=== PATIENT | male | born 1950 | race Caucasian/White ===

== ENCOUNTER 2019-11-18 20:45 | Inpatient (IN) | payer MEDICARE ==
[2019-11-18] MEDS ORDERED: NORMAL SALINE IV ONE (20:50)
[2019-11-18 21:32] LABS: VENOUS BLOOD BASE EXCESS -0.4 mmol/L; VENOUS BLOOD HCO3 22.9 mmol/L (20-32); VENOUS BLOOD PCO2 34.2 mmHg (35-63); VENOUS BLOOD PH 7.44 (7.30-7.42)
[2019-11-18 21:35] LABS: APPEARANCE,URINE CLOUDY; BILIRUBIN,URINE NEGATIVE (NEGATIVE); COLOR,URINE YELLOW; GLUCOSE, URINE >=500 mg/dL (NEGATIVE); KETONES,URINE TRACE mg/dL (NEGATIVE); LEUKOCYTE ESTERASE,URINE SMALL (NEGATIVE); NITRITE,URINE NEGATIVE (NEGATIVE); PROTEIN,URINE >=500 mg/dL (NEGATIVE); URINE SPECIFIC GRAVITY 1.022; UROBILINOGEN,URINE NEGATIVE mg/dL (<2.0)
[2019-11-18 21:39] LABS: ABSOLUTE LYMPHOCYTES (AUTO) 0.8 10^3/uL (0.5-4.7); ABSOLUTE MONOCYTES (AUTO) 0.3 10^3/uL (0.1-1.4); ABSOLUTE NEUT (AUTO) 7.1 10^3/uL (1.7-8.2); BASOPHILS % (AUTO) 0.6 % (0-2); EOSINOPHILS % (AUTO) 0.1 % (0-6); HEMATOCRIT 46.4 % (37.9-51.0); HEMOGLOBIN 16.1 g/dL (13.5-17.0); INTERNATIONAL RATION (INR) 1.19; LYMPHOCYTES % (AUTO) 9.6 % (13-45); MEAN CORPUSCULAR HEMOGLOBIN 29.4 pg (27.0-33.4); MEAN CORPUSCULAR HGB CONC 34.7 g/dL (32.0-36.0); MEAN CORPUSCULAR VOLUME 85 fl (80-97); MONOCYTES % (AUTO) 3.5 % (3-13); PLATELET COUNT 123 10^3/uL (150-450); PROTHROMBIN TIME 15.3 SEC (11.4-15.4); RED BLOOD COUNT 5.49 10^6/uL (4.35-5.55); RED CELL DISTRIBUTION WIDTH 14.8 % (11.5-14.0); SEGMENTED NEUTROPHILS % (AUTO) 86.2 % (42-78); TOTAL CELLS COUNTED % (AUTO) 100 %; WHITE BLOOD COUNT 8.2 10^3/uL (4.0-10.5)
[2019-11-18 21:47] LABS: ALBUMIN 4.6 g/dL (3.5-5.0); ALKALINE PHOSPHATASE 130 U/L (38-126); ANION GAP 17 (5-19); ASPARTATE AMINO TRANSFERASE 30 U/L (17-59); BILIRUBIN,DIRECT 0.5 mg/dL (0.0-0.4); BILIRUBIN,TOTAL 2.5 mg/dL (0.2-1.3); BLOOD UREA NITROGEN 17 mg/dL (7-20); CALCIUM 9.5 mg/dL (8.4-10.2); CARBON DIOXIDE 23 mmol/L (22-30); CHLORIDE 99 mmol/L (98-107); GLUCOSE 278 mg/dL (75-110); POTASSIUM 3.7 mmol/L (3.6-5.0); TOTAL PROTEIN 7.9 g/dL (6.3-8.2)
[2019-11-18] MEDS ORDERED: CEFTRIAXONE 1 GM/D5W RTU 1 GM/50 ML RTUPB IV ONE (23:42)
--- NOTE | 2019-11-18 23:49 | EKG REPORT ---
SEVERITY:- BORDERLINE ECG - SINUS TACHYCARDIA LVH BY VOLTAGE BORDERLINE T ABNORMALITIES, INFERIOR LEADS : Confirmed by: Jim Bee MD 18-Nov-2019 23:48:29
--- NOTE | 2019-11-18 23:55 | ER Document Report ---
ED General - General Chief Complaint: Dizziness Stated Complaint: TROUBLE BREATHING/VOMITING Time Seen by Provider: 11/18/19 23:41 Notes: CHIEF COMPLAINT: Dysuria and fever HPI: 68-year-old male brought by EMS for evaluation of dysuria fever and shortness of breath. Patient states that he has a history of hypertension, urinary infections, kidney stones, prediabetes and reflux disease. Patient takes carvedilol, losartan, metformin. Patient states that he began not feeling well yesterday with extreme fatigue and discomfort with urination. Patient denies abdominal pain or vomiting but states he did have nausea. Patient states that he was on the toilet tonight and became lightheaded and short of breath. called EMS at that time and he was found to have a fever of 102.5. Patient currently denies shortness of breath. ROS: See HPI - all other systems were reviewed and are otherwise negative Constitutional: no fever Eyes: no drainage, no blurred vision ENT: no runny nose, no sore throat Cardiovascular: no chest pain Resp: + SOB, no cough GI: no vomiting, no diarrhea, no abdominal pain : + dysuria Integumentary: no rash Allergy: no hives Musculoskeletal: no extremity pain or swelling Neurological: no numbness/tingling, + generalized weakness MEDICATIONS: I agree with the patient medications as charted by the RN. ALLERGIES: I agree with the allergies as charted by the RN. PAST MEDICAL HISTORY/PAST SURGICAL HISTORY: Reviewed and agree as charted by RN. SOCIAL HISTORY: Reviewed and agree as charted by RN. FAMILY HISTORY: No significant familial comorbid conditions directly related to patient complaint EXAM: Reviewed vital signs as charted by RN. CONSTITUTIONAL: Alert and oriented and responds appropriately to questions. Slightly ill-appearing; well-nourished HEAD: Normocephalic; atraumatic EYES: PERRL; Conjunctivae clear, sclerae non-icteric ENT: normal nose; no rhinorrhea; moist mucous membranes; pharynx without lesions noted, no uvula edema or deviation, no tonsillar hypertrophy, phonation normal NECK: Supple without meningismus; non-tender; no cervical lymphadenopathy, no masses CARD: Tachycardic; no murmurs, no clicks, no rubs, no gallops; symmetric distal pulses RESP: Normal chest excursion without splinting or tachypnea; breath sounds clear and equal bilaterally; no wheezes, no rhonchi, no rales, pulse oximetry 95% on room air not hypoxic ABD/GI: Obese, normal bowel sounds; non-distended; soft, mild suprapubic tenderness on palpation, no rebound, no guarding; no palpable organomegaly or masses. BACK: The back appears normal and is non-tender to palpation, there is no CVA tenderness EXT: Normal ROM in all joints; non-tender to palpation; no cyanosis, no effusions, no edema SKIN: Normal color for age and race; warm; diaphoretic; good turgor; no acute lesions noted NEURO: Moves all extremities equally; Motor and sensory function intact PSYCH: The patient's mood and manner are appropriate. Grooming and personal hygiene are appropriate. MDM: 68-year-old male presenting with dysuria with fever today up to 102.5 at home. Patient had acute shortness of breath with onset of the fever, not short of breath currently. Initial screening labs show a lactic acid of 3.0. Patient also with greater than 182 WBCs on urinalysis. Suspect urosepsis. Sepsis order set ordered via protocol, have added Rocephin as an antibiotic for the patient. Have added urine culture. Will obtain chest x-ray given the shortness of breath although I believe this was likely due to the high fever. Patient will likely need admission - Related Data Allergies/Adverse Reactions: acetaminophen [From Tylenol] Allergy (Verified 11/18/19 22:42) codeine Allergy (Verified 11/18/19 22:43) Past Medical History - Social History Smoking Status: Never Smoker Family History: Reviewed & Not Pertinent Physical Exam - Vital signs Vitals: Resp Pulse Ox 23 H 95 11/18/19 20:49 11/18/19 20:49 Course - Re-evaluation Re-evalutation: 11/19/19 00:[address] Prado, Hospitalist. Case discussed. Will come down to evaluate the patient - Vital Signs Vital signs: Temp Pulse Resp BP Pulse Ox 98.9 F 23 H 124/70 95 11/18/19 22:35 11/18/19 23:01 11/18/19 23:01 11/18/19 23:01 - Laboratory Result Diagrams: 11/18/19 20:58 11/18/19 20:58 Laboratory results interpreted by me: 11/18/19 11/18/19 11/18/19 20:58 20:58 20:58 RDW 14.8 H Plt Count 123 L Lymph % (Auto) 9.6 L Seg Neutrophils % 86.2 H VBG pH 7.44 H VBG pCO2 34.2 L Creatinine 1.43 H Est GFR ( Amer) 59 L Est GFR (MDRD) Non-Af 49 L Glucose 278 H Lactic Acid Total Bilirubin 2.5 H Direct Bilirubin 0.5 H Alkaline Phosphatase 130 H Urine Protein Urine Glucose (UA) Urine Ketones Urine Blood Ur Leukocyte Esterase 11/18/19 11/18/19 20:58 21:18 RDW Plt Count Lymph % (Auto) Seg Neutrophils % VBG pH VBG pCO2 Creatinine Est GFR ( Amer) Est GFR (MDRD) Non-Af Glucose Lactic Acid 3.0 H Total Bilirubin Direct Bilirubin Alkaline Phosphatase Urine Protein >=500 H Urine Glucose (UA) >=500 H Urine Ketones TRACE H Urine Blood MODERATE H Ur Leukocyte Esterase SMALL H Critical Care Note - Critical Care Note Total time excluding time spent on procedures (mins): 35 - urosepsis Discharge - Discharge Clinical Impression: Sepsis Qualifiers: Sepsis type: sepsis due to unspecified organism Sepsis acute organ dysfunction status: unspecified Qualified Code(s): A41.9 - Sepsis, unspecified organism UTI (urinary tract infection) Qualifiers: Urinary tract infection type: site unspecified Hematuria presence: without hematuria Qualified Code(s): N39.0 - Urinary tract infection, site not specified Condition: Fair Disposition: ADMITTED INPATIENT Admitting Provider: Eve (Hospitalist)
--- NOTE | 2019-11-19 00:52 | RADIOLOGY REPORT (SQ) ---
EXAM DESCRIPTION: X-RAY CHEST- One View CLINICAL HISTORY: Sepsis COMPARISON: None TECHNIQUE: Single view of the chest. FINDINGS: There are overlying EKG leads. Low lung volumes with compressive changes. There are no discrete air space infiltrates, pneumothoraces or pleural effusions. The pulmonary vascularity is normal. The cardiomediastinal silhouette is normal in size. There are arthritic changes of the right shoulder. IMPRESSION: There are no acute lung parenchymal findings. There are low lung volumes with compressive changes.
[2019-11-19] MEDS ORDERED: IBUPROFEN 600 MG TABLET PO PRN (00:58)
[2019-11-19] MEDS ORDERED: ONDANSETRON HCL INJ/PF 4 MG/2 ML SDV IV PRN (00:58)
--- NOTE | 2019-11-19 01:18 | PDOC H&P ---
History of Present Illness History of Present Illness: JAYNA WESLEY is a 68 year old male of a rather anxious disposition history of kidney stones and morbid obesity who presents with symptoms of a urinary tract infection since Tuesday. He did not call his doctor and did not noted that there was an after hours human resources receptionist number. He said he initially thought it was just small kidney stones that were clearing because he has had this before. He first noticed the dysuria on Tuesday afternoon. On Tuesday he had some nonspecific malaise and does not know if he had a fever because he says he does not typically feel febrile until his temperature hits 103 F. His called EMS and apparently his temperature was greater than 102 Fahrenheit. He was tachycardic in the ER. He says that he is allergic to a whole bunch of medicines but the only thing they do is make him nauseated, he is never had medication reaction where he broke out in hives or rash or had trouble breathing. His urinalysis was positive. He was given some IV fluids and a dose of Rocephin in the ER. Social History Smoking Status: Never Smoker Family History Family History: Reviewed & Not Pertinent Parental Family History Reviewed: Yes Children Family History Reviewed: Yes Sibling(s) Family History Reviewed.: Yes Medication/Allergy Allergies/Adverse Reactions: acetaminophen [From Tylenol] Allergy (Verified 11/18/19 22:42) codeine Allergy (Verified 11/18/19 22:43) Review of Systems All systems: reviewed and no additional remarkable complaints except as stated - All systems were reviewed and were negative except as noted in the HPI Physical Exam Vital Signs: Temp Pulse Resp BP Pulse Ox 98.9 F 23 H 124/70 95 11/18/19 22:35 11/18/19 23:01 11/18/19 23:01 11/18/19 23:01 Intake & Output 11/17/19 11/18/19 11/19/19 06:59 06:59 06:59 Weight 125.191 kg General appearance: PRESENT: no acute distress, cooperative, disheveled, morbidly obese Head exam: PRESENT: atraumatic, normocephalic Eye exam: PRESENT: EOMI, PERRLA. ABSENT: conjunctival injection, nystagmus, scleral icterus Ear exam: PRESENT: normal external ear exam Mouth exam: PRESENT: neck supple Neck exam: PRESENT: full ROM. ABSENT: carotid bruit, JVD, lymphadenopathy, meningismus, tenderness, thyromegaly Respiratory exam: PRESENT: clear to auscultation cesar, symmetrical, unlabored. ABSENT: accessory muscle use, chest wall tenderness, crackles, prolonged expiratory phas, rhonchi, tachypnea, wheezes Cardiovascular exam: PRESENT: +S1, +S2, tachycardia Pulses: PRESENT: normal carotid pulses Vascular exam: PRESENT: normal capillary refill GI/Abdominal exam: PRESENT: normal bowel sounds, soft, other - Pendulous abdominal pannus. ABSENT: distended, guarding, rebound, tenderness Extremities exam: PRESENT: other - He has varicose veins all the way up his legs bilaterally. ABSENT: clubbing, pedal edema Musculoskeletal exam: PRESENT: normal inspection. ABSENT: deformity Neurological exam: PRESENT: alert, awake, oriented to person, oriented to place, oriented to situation, CN II-XII grossly intact. ABSENT: motor sensory deficit Psychiatric exam: PRESENT: anxious Skin exam: PRESENT: dry, warm Results Laboratory Results: 11/18/19 20:58 11/18/19 20:58 11/18/19 11/18/19 11/18/19 20:58 20:58 20:58 WBC 8.2 RBC 5.49 Hgb 16.1 Hct 46.4 MCV 85 MCH 29.4 MCHC 34.7 RDW 14.8 H Plt Count 123 L Seg Neutrophils % 86.2 H VBG pH 7.44 H VBG pCO2 34.2 L VBG HCO3 22.9 VBG Base Excess -0.4 Sodium 138.6 Potassium 3.7 Chloride 99 Carbon Dioxide 23 Anion Gap 17 BUN 17 Creatinine 1.43 H Est GFR ( Amer) 59 L Glucose 278 H Lactic Acid Calcium 9.5 Total Bilirubin 2.5 H AST 30 Alkaline Phosphatase 130 H Total Protein 7.9 Albumin 4.6 Urine Color Urine Appearance Urine pH Ur Specific [place] Urine Protein Urine Glucose (UA) Urine Ketones Urine Blood Urine Nitrite Ur Leukocyte Esterase Urine WBC (Auto) Urine RBC (Auto) 11/18/19 11/18/19 20:58 21:18 WBC RBC Hgb Hct MCV MCH MCHC RDW Plt Count Seg Neutrophils % VBG pH VBG pCO2 VBG HCO3 VBG Base Excess Sodium Potassium Chloride Carbon Dioxide Anion Gap BUN Creatinine Est GFR ( Amer) Glucose Lactic Acid 3.0 H Calcium Total Bilirubin AST Alkaline Phosphatase Total Protein Albumin Urine Color YELLOW Urine Appearance CLOUDY Urine pH 5.0 Ur Specific [place] 1.022 Urine Protein >=500 H Urine Glucose (UA) >=500 H Urine Ketones TRACE H Urine Blood MODERATE H Urine Nitrite NEGATIVE Ur Leukocyte Esterase SMALL H Urine WBC (Auto) >182 Urine RBC (Auto) 9 Impressions: Chest X-Ray 11/18/19 23:55 IMPRESSION: There are no acute lung parenchymal findings. There are low lung volumes with compressive changes. Assessment and Plan - Diagnosis (1) Sepsis Qualifiers: Sepsis type: sepsis due to unspecified organism Sepsis acute organ dysfunction status: with acute organ dysfunction Severe sepsis acute organ dysfunction type: unspecified Severe sepsis shock status: without septic shock Qualified Code(s): A41.9 - Sepsis, unspecified organism; R65.20 - Severe sepsis without septic shock Is this a current diagnosis for this admission?: Yes Plan: His lactate was elevated, but also interestingly his bilirubin was little bit elevated. I do not know that this is normal for him. His liver enzymes were normal and his alkaline phosphatase was at the upper limit of normal. It may be that he typically runs a little bit of an elevated bilirubin, but we have no p rior lab work on him with which to compare it. We will hydrate him and treat his urinary infection and monitor his labs. His creatinine was elevated but his BUN was normal, and there is a possibility that his kidney function is at baseline. We will follow-up on another metabolic panel in the morning. (2) UTI (urinary tract infection) Qualifiers: Urinary tract infection type: acute cystitis Hematuria presence: without hematuria Qualified Code(s): N30.00 - Acute cystitis without hematuria Is this a current diagnosis for this admission?: Yes Plan: Empiric Rocephin. Urine and blood cultures pending. (3) Morbid obesity with BMI of 40.0-44.9, adult Is this a current diagnosis for this admission?: Yes Plan: Strongly encourage lifestyle modification - Time Time Spent with patient: 35 or more minutes Anticipated Discharge Disposition: Home, Self Care Anticipated Discharge Timeframe: within 48 hours - Inpatient Certification Based on my medical assessment, after consideration of the patient's comorbidities, presenting symptoms, or acuity I expect that the services needed warrant INPATIENT care.: Yes I certify that my determination is in accordance with my understanding of Medicare's requirements for reasonable and necessary INPATIENT services [42 CFR 412.3e].: Yes Medical Necessity: Need Close Monitoring Due to Risk of Patient Decompensation, Need For IV Fluids, Need for IV Antibiotics, Risk of Complication if Not Cared For in Hospital
[2019-11-19] MEDS: NORMAL SALINE 1000 ML 1,000 ML IV PRN ×3 (03:44→22:13)
[2019-11-19] MEDS: HEPARIN SOD (PORCINE) 5,000 UNIT/ML 1 ML VIAL SUBCUT SCH ×3 (05:19→22:15)
[2019-11-19] MEDS ORDERED: PANTOPRAZOLE SODIUM 40 MG TABLET.DR PO SCH (06:00)
[2019-11-19] MEDS: TRAMADOL HCL 50 MG TABLET PO PRN ×2 (06:55→20:30)
[2019-11-19] MEDS: CARVEDILOL 12.5 MG TABLET PO SCH ×2 (09:54→22:05)
[2019-11-19] MEDS: TAMSULOSIN HCL 0.4 MG CAP.SR.24H PO SCH (09:54)
[2019-11-19] MEDS: METFORMIN HCL 500 MG TABLET PO SCH (09:54)
[2019-11-19] MEDS: CHLORTHALIDONE 25 MG TABLET PO SCH (09:55)
[2019-11-19] MEDS ORDERED: LOSARTAN POTASSIUM 50 MG TABLET PO SCH (10:00)
[2019-11-19] MEDS ORDERED: (PENDING PHARMACY ID) (Irbesartan [Irbesartan] 300 MG) PO SCH (10:00)
[2019-11-19] MEDS ORDERED: DEXLANSOPRAZOLE PO SCH (10:00)
[2019-11-19] MEDS: CEFTRIAXONE 1 GM/D5W RTU 1 GM/50 ML RTUPB IV SCH (22:07)
[2019-11-20 04:58] LABS: MEAN CORPUSCULAR HEMOGLOBIN 28.9 pg (27.0-33.4); MEAN CORPUSCULAR HGB CONC 34.3 g/dL (32.0-36.0); MEAN CORPUSCULAR VOLUME 84 fl (80-97); RED BLOOD COUNT 4.39 10^6/uL (4.35-5.55); WHITE BLOOD COUNT 13.6 10^3/uL (4.0-10.5)
[2019-11-20 05:02] LABS: ALKALINE PHOSPHATASE 87 U/L (38-126); ANION GAP 11 (5-19); ASPARTATE AMINO TRANSFERASE 59 U/L (17-59); BILIRUBIN,TOTAL 0.6 mg/dL (0.2-1.3); BLOOD UREA NITROGEN 22 mg/dL (7-20); CALCIUM 7.7 mg/dL (8.4-10.2); CARBON DIOXIDE 20 mmol/L (22-30); CHLORIDE 104 mmol/L (98-107); GLUCOSE 246 mg/dL (75-110); POTASSIUM 3.6 mmol/L (3.6-5.0); TOTAL PROTEIN 5.8 g/dL (6.3-8.2)
[2019-11-20 05:13] LABS: HEMOGLOBIN 12.7 g/dL (13.5-17.0)
[2019-11-20] MEDS: HEPARIN SOD (PORCINE) 5,000 UNIT/ML 1 ML VIAL SUBCUT SCH ×3 (05:16→22:50)
[2019-11-20 05:17] LABS: PLATELET COUNT 90 10^3/uL (150-450)
[2019-11-20] MEDS: CARVEDILOL 12.5 MG TABLET PO SCH ×2 (09:10→22:48)
[2019-11-20] MEDS: METFORMIN HCL 500 MG TABLET PO SCH (09:10)
[2019-11-20] MEDS: IRBESARTAN PO SCH (09:11)
[2019-11-20] MEDS: NORMAL SALINE 1000 ML 1,000 ML IV PRN ×2 (09:22→19:27)
[2019-11-20] MEDS ORDERED: DEXLANSOPRAZOLE PO SCH (10:00)
--- NOTE | 2019-11-20 13:54 | PDOC PROGRESS REPORT ---
Subjective Progress Note for:: 11/20/19 Reason For Visit: UTI Physical Exam Vital Signs: Temp Pulse Resp BP Pulse Ox 98.1 F 79 20 155/84 H 97 11/20/19 11:41 11/20/19 11:41 11/20/19 11:41 11/20/19 11:41 11/20/19 11:41 Intake & Output 11/19/19 11/20/19 11/21/19 06:59 06:59 06:59 Intake Total 4200 3829 1727 Balance 4200 3829 1727 Weight 127.1 kg 127 kg General appearance: PRESENT: no acute distress, obese, well-developed, well- nourished Head exam: PRESENT: atraumatic, normocephalic Eye exam: PRESENT: conjunctiva pink, EOMI, PERRLA. ABSENT: scleral icterus Ear exam: PRESENT: normal external ear exam Mouth exam: PRESENT: moist, tongue midline Neck exam: ABSENT: carotid bruit, JVD, lymphadenopathy, thyromegaly Respiratory exam: PRESENT: clear to auscultation cesar. ABSENT: rales, rhonchi, wheezes Cardiovascular exam: PRESENT: RRR. ABSENT: diastolic murmur, rubs, systolic murmur Pulses: PRESENT: normal dorsalis pedis pul Vascular exam: PRESENT: normal capillary refill GI/Abdominal exam: PRESENT: normal bowel sounds, soft. ABSENT: distended, guarding, mass, organolmegaly, rebound, tenderness Rectal exam: PRESENT: deferred Extremities exam: PRESENT: full ROM. ABSENT: calf tenderness, clubbing, pedal edema Neurological exam: PRESENT: alert, awake, oriented to person, oriented to place, oriented to time, oriented to situation, CN II-XII grossly intact. ABSENT: motor sensory deficit Psychiatric exam: PRESENT: appropriate affect, normal mood. ABSENT: homicidal ideation, suicidal ideation Skin exam: PRESENT: dry, intact, warm. ABSENT: cyanosis, rash Results Laboratory Results: 11/20/19 04:40 11/20/19 04:40 11/20/19 11/20/19 04:40 04:40 WBC 13.6 H RBC 4.39 Hgb 12.7 L D Hct 37.0 L MCV 84 MCH 28.9 MCHC 34.3 RDW 15.0 H Plt Count 90 L Sodium 135.1 L Potassium 3.6 Chloride 104 Carbon Dioxide 20 L Anion Gap 11 BUN 22 H Creatinine 1.32 H Est GFR ( Amer) > 60 Glucose 246 H Calcium 7.7 L Total Bilirubin 0.6 AST 59 Alkaline Phosphatase 87 Total Protein 5.8 L Albumin 3.0 L Impressions: Chest X-Ray 11/18/19 23:55 IMPRESSION: There are no acute lung parenchymal findings. There are low lung volumes with compressive changes. Assessment and Plan - Diagnosis (1) Morbid obesity with BMI of 40.0-44.9, adult Is this a current diagnosis for this admission?: Yes (2) Sepsis Qualifiers: Sepsis type: sepsis due to unspecified organism Sepsis acute organ dys function status: with acute organ dysfunction Severe sepsis acute organ d ysfunction type: unspecified Severe sepsis shock status: without septic shock Qualified Code(s): A41.9 - Sepsis, unspecified organism; R65.20 - Severe sepsis without septic shock Is this a current diagnosis for this admission?: Yes Plan: Secondary to gram negative organisms. Will repeat BC in am Cont Ceftriaxone (3) UTI (urinary tract infection) Qualifiers: Urinary tract infection type: acute cystitis Hematuria presence: without hematuria Qualified Code(s): N30.00 - Acute cystitis without hematuria Is this a current diagnosis for this admission?: Yes Plan: From gram negative rods, follow up on cultures - Time Time Spent with patient: 15-24 minutes Anticipated Discharge Disposition: Home, Self Care Anticipated Discharge Timeframe: within 48 hours
[2019-11-20] MEDS: TAMSULOSIN HCL 0.4 MG CAP.SR.24H PO SCH (17:48)
[2019-11-20] MEDS: CHLORTHALIDONE 25 MG TABLET PO SCH (17:51)
[2019-11-20] MEDS: DEXLANSOPRAZOLE PO SCH (19:25)
[2019-11-20] MEDS: CEFTRIAXONE 1 GM/D5W RTU 1 GM/50 ML RTUPB IV SCH (22:49)
[2019-11-21] MEDS: HEPARIN SOD (PORCINE) 5,000 UNIT/ML 1 ML VIAL SUBCUT SCH ×3 (06:16→21:45)
[2019-11-21 07:46] LABS: ABSOLUTE BASOPHILS # (AUTO) 0.1 10^3/uL (0.0-0.2); ABSOLUTE EOSINOPHILS # (AUTO) 0.3 10^3/uL (0.0-0.6); ABSOLUTE LYMPHOCYTES (AUTO) 0.7 10^3/uL (0.5-4.7); ABSOLUTE MONOCYTES (AUTO) 0.9 10^3/uL (0.1-1.4); ABSOLUTE NEUT (AUTO) 7.8 10^3/uL (1.7-8.2); BASOPHILS % (AUTO) 0.5 % (0-2); EOSINOPHILS % (AUTO) 2.6 % (0-6); HEMATOCRIT 37.6 % (37.9-51.0); LYMPHOCYTES % (AUTO) 7.1 % (13-45); MEAN CORPUSCULAR HEMOGLOBIN 29.1 pg (27.0-33.4); MEAN CORPUSCULAR HGB CONC 34.7 g/dL (32.0-36.0); MEAN CORPUSCULAR VOLUME 84 fl (80-97); MONOCYTES % (AUTO) 9.7 % (3-13); PLATELET COUNT 103 10^3/uL (150-450); RED BLOOD COUNT 4.48 10^6/uL (4.35-5.55); SEGMENTED NEUTROPHILS % (AUTO) 80.1 % (42-78); TOTAL CELLS COUNTED % (AUTO) 100 %; WHITE BLOOD COUNT 9.7 10^3/uL (4.0-10.5)
[2019-11-21 07:58] LABS: ANION GAP 12 (5-19); BLOOD UREA NITROGEN 20 mg/dL (7-20); CALCIUM 8.3 mg/dL (8.4-10.2); CARBON DIOXIDE 26 mmol/L (22-30); CHLORIDE 99 mmol/L (98-107); GLUCOSE 173 mg/dL (75-110); POTASSIUM 3.5 mmol/L (3.6-5.0)
[2019-11-21] MEDS: CHLORTHALIDONE 25 MG TABLET PO SCH (09:44)
[2019-11-21] MEDS: METFORMIN HCL 500 MG TABLET PO SCH (09:44)
[2019-11-21] MEDS: CARVEDILOL 12.5 MG TABLET PO SCH ×2 (09:44→21:35)
[2019-11-21] MEDS: IRBESARTAN PO SCH (09:45)
[2019-11-21] MEDS: NORMAL SALINE 1000 ML 1,000 ML IV PRN ×2 (09:46→21:44)
[2019-11-21] MEDS ORDERED: POTASSIUM CHLORIDE 10 MEQ TABLET.ER PO ONE (14:19)
[2019-11-21] MEDS: TAMSULOSIN HCL 0.4 MG CAP.SR.24H PO SCH (14:20)
--- NOTE | 2019-11-21 14:23 | PDOC PROGRESS REPORT ---
Subjective Progress Note for:: 11/21/19 Subjective:: Patient feels much better today. He states he still feels weak and his appetite is poor but he can definitely notice an improvement Reason For Visit: UTI Physical Exam Vital Signs: Temp Pulse Resp BP Pulse Ox 97.9 F 82 16 156/84 H 95 11/21/19 11:22 11/21/19 11:22 11/21/19 11:22 11/21/19 11:22 11/21/19 11:22 Intake & Output 11/20/19 11/21/19 11/22/19 06:59 06:59 06:59 Intake Total 3829 4857 240 Balance 3829 4857 240 Weight 127 kg 129.6 kg General appearance: PRESENT: no acute distress, well-developed, well-nourished Head exam: PRESENT: atraumatic, normocephalic Eye exam: PRESENT: conjunctiva pink, EOMI, PERRLA. ABSENT: scleral icterus Ear exam: PRESENT: normal external ear exam Mouth exam: PRESENT: moist, tongue midline Neck exam: ABSENT: carotid bruit, JVD, lymphadenopathy, thyromegaly Respiratory exam: PRESENT: clear to auscultation cesar. ABSENT: rales, rhonchi, wheezes Cardiovascular exam: PRESENT: RRR. ABSENT: diastolic murmur, rubs, systolic murmur Pulses: PRESENT: normal dorsalis pedis pul Vascular exam: PRESENT: normal capillary refill GI/Abdominal exam: PRESENT: normal bowel sounds, soft. ABSENT: distended, guarding, mass, organolmegaly, rebound, tenderness Rectal exam: PRESENT: deferred Extremities exam: PRESENT: full ROM. ABSENT: calf tenderness, clubbing, pedal edema Neurological exam: PRESENT: alert, awake, oriented to person, oriented to place, oriented to time, oriented to situation, CN II-XII grossly intact. ABSENT: motor sensory deficit Psychiatric exam: PRESENT: appropriate affect, normal mood. ABSENT: homicidal ideation, suicidal ideation Skin exam: PRESENT: dry, intact, warm. ABSENT: cyanosis, rash Results Laboratory Results: 11/21/19 06:17 11/21/19 06:17 11/21/19 11/21/19 06:17 06:17 WBC 9.7 RBC 4.48 Hgb 13.0 L Hct 37.6 L MCV 84 MCH 29.1 MCHC 34.7 RDW 15.0 H Plt Count 103 L Seg Neutrophils % 80.1 H Sodium 137.1 Potassium 3.5 L Chloride 99 Carbon Dioxide 26 Anion Gap 12 BUN 20 Creatinine 1.17 Est GFR ( Amer) > 60 Glucose 173 H Calcium 8.3 L 11/18/19 21:18 Clean Catch Midstream Urine Culture - Final Klebsiella Oxytoca 11/18/19 21:25 Blood Blood Culture - Final Klebsiella Oxytoca Impressions: Chest X-Ray 11/18/19 23:55 IMPRESSION: There are no acute lung parenchymal findings. There are low lung volumes with compressive changes. Assessment and Plan - Diagnosis (1) Morbid obesity with BMI of 40.0-44.9, adult Is this a current diagnosis for this admission?: Yes Plan: Strongly encourage lifestyle modification (2) Sepsis Qualifiers: Sepsis type: sepsis due to unspecified organism Sepsis acute organ dysfunction status: with acute organ dysfunction Severe sepsis acute organ dysfunction type: unspecified Severe sepsis shock status: without septic shock Qualified Code(s): A41.9 - Sepsis, unspecified organism; R65.20 - Severe sepsis without septic shock Is this a current diagnosis for this admission?: Yes Plan: Blood culture yielding Klebsiella. Repeat blood cultures pending today. Once this is negative patient can be changed to oral antibiotics and can likely be discharged home. Source of his bacteremia is the urine. He does have a history of nephrolithiasis (3) UTI (urinary tract infection) Qualifiers: Urinary tract infection type: acute cystitis Hematuria presence: without hematuria Qualified Code(s): N30.00 - Acute cystitis without hematuria Is this a current diagnosis for this admission?: Yes Plan: Secondary to Klebsiella. We will continue with parenteral antibiotics and change to oral once blood culture negative - Time Time Spent with patient: 15-24 minutes Anticipated Discharge Disposition: Home, Self Care Anticipated Discharge Timeframe: within 48 hours - Inpatient Certification Based on my medical assessment, after consideration of the patient's comorbidities, presenting symptoms, or acuity I expect that the services needed warrant INPATIENT care.: Yes Medical Necessity: Need for IV Antibiotics
[2019-11-21] MEDS: DEXLANSOPRAZOLE PO SCH (18:54)
[2019-11-21] MEDS: CEFTRIAXONE 1 GM/D5W RTU 1 GM/50 ML RTUPB IV SCH (21:34)
[2019-11-22] MEDS: HEPARIN SOD (PORCINE) 5,000 UNIT/ML 1 ML VIAL SUBCUT SCH ×3 (06:52→21:52)
[2019-11-22] MEDS: NORMAL SALINE 1000 ML 1,000 ML IV PRN ×2 (08:30→19:22)
[2019-11-22] MEDS: CHLORTHALIDONE 25 MG TABLET PO SCH (08:30)
[2019-11-22] MEDS: METFORMIN HCL 500 MG TABLET PO SCH (09:07)
[2019-11-22] MEDS: IRBESARTAN PO SCH (09:08)
[2019-11-22] MEDS: CARVEDILOL 12.5 MG TABLET PO SCH ×2 (09:08→21:55)
[2019-11-22] MEDS: TAMSULOSIN HCL 0.4 MG CAP.SR.24H PO SCH (12:01)
[2019-11-22] MEDS: DEXLANSOPRAZOLE PO SCH (17:25)
[2019-11-22] MEDS ORDERED: SENNOSIDES/DOCUSATE 8.6-50 MG 1 EACH TABLET PO ONE (18:00)
[2019-11-22] MEDS: CEFTRIAXONE 1 GM/D5W RTU 1 GM/50 ML RTUPB IV SCH (21:57)
--- NOTE | 2019-11-22 22:56 | PDOC PROGRESS REPORT ---
Subjective Progress Note for:: 11/22/19 Subjective:: Patient was seen and examined at bedside reports that he is feeling much better today compared to previous days still not back to his baseline. No fever no dysuria no hematuria no nausea and vomiting. Has fair appetite able to eat and drink. Reason For Visit: UTI Physical Exam Vital Signs: Temp Pulse Resp BP Pulse Ox 98.3 F 83 18 145/82 H 96 11/22/19 19:36 11/22/19 19:36 11/22/19 19:36 11/22/19 19:36 11/22/19 19:36 Intake & Output 11/21/19 11/22/19 11/23/19 06:59 06:59 06:59 Intake Total 4857 2070 3350 Balance 4857 2070 3350 Weight 129.6 kg 129.6 kg General appearance: PRESENT: no acute distress Head exam: PRESENT: atraumatic, normocephalic Eye exam: PRESENT: EOMI, PERRLA Mouth exam: PRESENT: moist Respiratory exam: PRESENT: clear to auscultation cesar, symmetrical. ABSENT: rales, rhonchi, wheezes Cardiovascular exam: PRESENT: RRR, +S1, +S2 - normal. ABSENT: gallop, systolic murmur Pulses: PRESENT: +2 pedal pulses bilateral Vascular exam: PRESENT: normal capillary refill GI/Abdominal exam: PRESENT: normal bowel sounds, soft. ABSENT: distended, guarding, rebound, tenderness Musculoskeletal exam: PRESENT: ambulatory, full ROM Psychiatric exam: PRESENT: normal mood Results Laboratory Results: 11/21/19 06:17 11/21/19 06:17 Impressions: Chest X-Ray 11/18/19 23:55 IMPRESSION: There are no acute lung parenchymal findings. There are low lung volumes with compressive changes. Assessment and Plan - Diagnosis (1) Sepsis Qualifiers: Sepsis type: sepsis due to unspecified organism Sepsis acute organ dysfunction status: with acute organ dysfunction Severe sepsis acute organ dysfunction type: unspecified Severe sepsis shock status: without septic shock Qualified Code(s): A41.9 - Sepsis, unspecified organism; R65.20 - Severe sepsis without septic shock Is this a current diagnosis for this admission?: Yes Plan: -Sepsis resolved. UTI as source of sepsis -Afebrile vital signs stable -WBC count 9.7 -First blood culture urine culture grew Klebsiella -Repeat blood culture negative x1 -currently on ceftriaxone day 4 -Will switch to oral antibiotics tomorrow (2) Morbid obesity with BMI of 40.0-44.9, adult Is this a current diagnosis for this admission?: Yes Plan: Strongly encourage lifestyle modification - Time Time Spent with patient: 25-34 minutes Anticipated Discharge Disposition: Home, Self Care Anticipated Discharge Timeframe: within 48 hours - Inpatient Certification Medical Necessity: Need for IV Antibiotics
[2019-11-23] MEDS: HEPARIN SOD (PORCINE) 5,000 UNIT/ML 1 ML VIAL SUBCUT SCH ×2 (05:54→14:09)
[2019-11-23] MEDS: CHLORTHALIDONE 25 MG TABLET PO SCH (10:24)
[2019-11-23] MEDS: IRBESARTAN PO SCH (10:25)
[2019-11-23] MEDS: CARVEDILOL 12.5 MG TABLET PO SCH (10:25)
[2019-11-23] MEDS: METFORMIN HCL 500 MG TABLET PO SCH (10:25)
[2019-11-23] MEDS: TAMSULOSIN HCL 0.4 MG CAP.SR.24H PO SCH (14:07)
[2019-11-23] MEDS ORDERED: CEFTRIAXONE 1 GM/D5W RTU 1 GM/50 ML RTUPB IV ONE (16:00)
[2019-11-23 17:05] VITALS: BP 140/85
[2019-11-23] MEDS: DEXLANSOPRAZOLE PO SCH (18:59)
--- NOTE | 2019-11-23 23:11 | PDOC DISCHARGE SUMMARY ---
Impression - Admit/DC Date/PCP Admission Date/Primary Care Provider: 11/19/19 01:12 Discharge Date: 11/23/19 - Discharge Diagnosis (1) Sepsis Is this a current diagnosis for this admission?: Yes (2) Morbid obesity with BMI of 40.0-44.9, adult Is this a current diagnosis for this admission?: Yes - Additional Information Resuscitation Status: Full Code Discharge Diet: As Tolerated Discharge Activity: Activity As Tolerated Referrals: LILIBETH MEDRANO III, MD [NO LOCAL MD] - 11/28/19 Prescriptions: Levofloxacin [Levaquin 750 mg Tablet] 750 mg PO DAILY 2 Days #2 tab Home Medications: Carvedilol 25 mg PO Q12 11/19/19 Chlorthalidone [Hygroton 25 mg Tablet] 25 mg PO QAM 11/19/19 Dexlansoprazole [Dexilant 60 mg Capsule] 60 mg PO DAILY 11/19/19 Irbesartan 300 mg PO DAILY 11/19/19 Metformin HCl 500 mg PO DAILY 11/19/19 Multivitamin 1 tab PO DAILY 11/19/19 Tamsulosin HCl [Flomax] 0.4 mg PO DAILY 11/19/19 Tramadol HCl [Ultram 50 mg Tablet] 50 mg PO Q6HP PRN 11/19/19 Levofloxacin [Levaquin 750 mg Tablet] 750 mg PO DAILY 2 Days #2 tab 11/23/19 History of Present Illiness History of Present Illness: JAYNA WESLEY is a 68 year old male, history of prior kidney stones , who was admitted from the emergency room who was admitted due to dysuria, fever, . His urinalysis was positive for urinary tract infection. He was started on Rocephin and IV fluids and was subsequently admitted on floors for further management. Blood culture grew Klebsiella, treated to ceftriaxone. He met criteria for sepsis and was treated for it Hospital Course Hospital Course: He continued to receive ceftriaxone with improvement of his symptoms no fever, resolved. First blood culture grew Klebsiella. Repeat blood culture negative. He improved and was stable enough to be discharged on 22 November on Levaquin for 2 more days Physical Exam Vital Signs: Temp Pulse Resp BP Pulse Ox 97.8 F 81 18 140/85 H 95 11/23/19 17:04 11/23/19 17:04 11/23/19 17:04 11/23/19 17:04 11/23/19 17:04 Intake & Output 11/22/19 11/23/19 11/24/19 06:59 06:59 06:59 Intake Total 20690 1850 Balance 2069 3349 1850 Weight 129.6 kg 129.6 kg General appearance: PRESENT: no acute distress Head exam: PRESENT: atraumatic, normocephalic Eye exam: PRESENT: EOMI, PERRLA Mouth exam: PRESENT: moist Neck exam: ABSENT: carotid bruit, JVD Respiratory exam: PRESENT: clear to auscultation cesar, symmetrical, unlabored Cardiovascular exam: PRESENT: RRR, +S1, +S2 Pulses: PRESENT: +1 pedal pulses bilateral, +2 pedal pulses bilateral GI/Abdominal exam: PRESENT: normal bowel sounds, soft. ABSENT: tenderness Rectal exam: PRESENT: deferred Gentrourinary exam: ABSENT: scrotal swelling, testicular tenderness Extremities exam: ABSENT: joint swelling Musculoskeletal exam: PRESENT: full ROM Neurological exam: PRESENT: alert, awake, oriented to place, oriented to time, oriented to situation Psychiatric exam: PRESENT: normal mood Results Laboratory Results: WBC 9.7 10^3/uL (4.0-10.5) 11/21/19 06:17 RBC 4.48 10^6/uL (4.35-5.55) 11/21/19 06:17 Hgb 13.0 g/dL (13.5-17.0) L 11/21/19 06:17 Hct 37.6 % (37.9-51.0) L 11/21/19 06:17 MCV 84 fl (80-97) 11/21/19 06:17 MCH 29.1 pg (27.0-33.4) 11/21/19 06:17 MCHC 34.7 g/dL (32.0-36.0) 11/21/19 06:17 RDW 15.0 % (11.5-14.0) H 11/21/19 06:17 Plt Count 103 10^3/uL (150-450) L 11/21/19 06:17 Lymph % (Auto) 7.1 % (13-45) L 11/21/19 06:17 [place]lette % (Auto) 9.7 % (3-13) 11/21/19 06:17 Eos % (Auto) 2.6 % (0-6) 11/21/19 06:17 Baso % (Auto) 0.5 % (0-2) 11/21/19 06:17 Absolute Neuts (auto) 7.8 10^3/uL (1.7-8.2) 11/21/19 06:17 Absolute Lymphs (auto) 0.7 10^3/uL (0.5-4.7) 11/21/19 06:17 Absolute Monos (auto) 0.9 10^3/uL (0.1-1.4) 11/21/19 06:17 Absolute Eos (auto) 0.3 10^3/uL (0.0-0.6) 11/21/19 06:17 Absolute Basos (auto) 0.1 10^3/uL (0.0-0.2) 11/21/19 06:17 Seg Neutrophils % 80.1 % (42-78) H 11/21/19 06:17 PT 15.3 SEC (11.4-15.4) 11/18/19 20:58 INR 1.19 11/18/19 20:58 VBG pH 7.44 (7.30-7.42) H 11/18/19 20:58 VBG pCO2 34.2 mmHg (35-63) L 11/18/19 20:58 VBG HCO3 22.9 mmol/L (20-32) 11/18/19 20:58 VBG Base Excess -0.4 mmol/L 11/18/19 20:58 Sodium 137.1 mmol/L (137-145) 11/21/19 06:17 Potassium 3.5 mmol/L (3.6-5.0) L 11/21/19 06:17 Chloride 99 mmol/L (98-107) 11/21/19 06:17 Carbon Dioxide 26 mmol/L (22-30) 11/21/19 06:17 Anion Gap 12 (5-19) 11/21/19 06:17 BUN 20 mg/dL (7-20) 11/21/19 06:17 Creatinine 1.17 mg/dL (0.52-1.25) 11/21/19 06:17 Est GFR ( Amer) > 60 (>60) 11/21/19 06:17 Est GFR (MDRD) Non-Af > 60 (>60) 11/21/19 06:17 Glucose 173 mg/dL (75-110) H 11/21/19 06:17 Hemoglobin A1c % 9.0 % (4.7-6.0) H 11/21/19 06:17 Lactic Acid 1.7 mmol/L (0.7-2.1) 11/19/19 03:14 Calcium 8.3 mg/dL (8.4-10.2) L 11/21/19 06:17 Total Bilirubin 0.6 mg/dL (0.2-1.3) 11/20/19 04:40 Direct Bilirubin 0.0 mg/dL (0.0-0.4) 11/20/19 04:40 Neonat Total Bilirubin Not Reportable 11/20/19 04:40 Neonat Direct Bilirubin Not Reportable 11/20/19 04:40 Neonat Indirect Bili Not Reportable 11/20/19 04:40 AST 59 U/L (17-59) 11/20/19 04:40 ALT 36 U/L (<50) 11/20/19 04:40 Alkaline Phosphatase 87 U/L (38-126) 11/20/19 04:40 Total Protein 5.8 g/dL (6.3-8.2) L 11/20/19 04:40 Albumin 3.0 g/dL (3.5-5.0) L 11/20/19 04:40 Urine Color YELLOW 11/18/19 21:18 Urine Appearance CLOUDY 11/18/19 21:18 Urine pH 5.0 (5.0-9.0) 11/18/19 21:18 Ur Specific [place] 1.022 11/18/19 21:18 Urine Protein >=500 mg/dL (NEGATIVE) H 11/18/19 21:18 Urine Glucose (UA) >=500 mg/dL (NEGATIVE) H 11/18/19 21:18 Urine Ketones TRACE mg/dL (NEGATIVE) H 11/18/19 21:18 Urine Blood MODERATE (NEGATIVE) H 11/18/19 21:18 Urine Nitrite NEGATIVE (NEGATIVE) 11/18/19 21:18 Urine Bilirubin NEGATIVE (NEGATIVE) 11/18/19 21:18 Urine Urobilinogen NEGATIVE mg/dL (<2.0) 11/18/19 21:18 Ur Leukocyte Esterase SMALL (NEGATIVE) H 11/18/19 21:18 Urine WBC (Auto) >182 /HPF 11/18/19 21:18 Urine RBC (Auto) 9 /HPF 11/18/19 21:18 Urine Bacteria (Auto) 2+ /HPF 11/18/19 21:18 Urine WBC Clumps FEW /HPF 11/18/19 21:18 Squamous Epi Cells Auto 1 /HPF 11/18/19 21:18 Urine Mucus (Auto) RARE /LPF 11/18/19 21:18 Urine Ascorbic Acid NEGATIVE (NEGATIVE) 11/18/19 21:18 Impressions: Chest X-Ray 11/18/19 23:55 IMPRESSION: There are no acute lung parenchymal findings. There are low lung volumes with compressive changes. Plan Plan of Treatment: To complete 2 more days of oral antibiotics Time Spent: Greater than 30 Minutes Stroke Is this a Stroke Patient?: No Stroke Pt being discharged on Anti-thrombolytic therapy?: No Reason(s) for not prescribing Anti-thrombolytic therapy:: Not indicated Stroke Pt being discharged on Anti-coagulation therapy?: No Reason(s) for not prescribing Anti-coagulation therapy:: Not indicated Stroke Pt being discharged on Statins?: No Reason(s) for not prescribing Statins therapy:: Not indicated Acute Heart Failure - Is this a Heart Failure Patient?: No Documentation of LVEF assessment?: No, Document reason LVEF - Reason: Not applicable LVEF: LVEF Greater Than 40% Anticoagulant Therapy: No, document contraindications Reason(s) not Discharged on Anticoagulant Therapy: Other Anticoagulant Therapy Reason - Other: Not applicable Discharged on Evidence-Based Beta Blockers: No, document contraindications Reason(s) not discharged on Evidence-Based Beta Blockers: Other Beta Tigist Reason - Other: Not applicable Discharged on ARNI?: No-Document Contraindications Reason(s) not discharged on ARNI: Other ARNI Reason - Other: Not applicable Reason(s) not Discharged on ARB: Other ARB Reason - Other: Not applicable Discharged on ACEI?: No, document contraindications Reason(s) not Discharged on ACEI: other ACEI Reason - Other: Not applicable For LVEF <35%, discharged on Aldosterone Antagonist?: No-document contraincations Reason(s) not discharged on Aldosterone Antagonist: Other Aldosterone Antagonist Reason - Other: Not applicable Follow-up Appointment scheduled within 7 days?: Yes
== END 2019-11-23 19:30 | disposition home or self-care (01) | DRG 872 ==
LOC: ER 20:45 → EH 11-19 01:12 → 5 11-19 03:22
PROVIDERS: ADMIT Family Medicine; ATTEND Internal Medicine
DX: A41.89 Other specified sepsis (principal); N39.0 Urinary tract infection, site not specified; Z68.41 Body mass index [BMI] 40.0-44.9, adult; Z79.84 Long term (current) use of oral hypoglycemic drugs; E66.01 Morbid (severe) obesity due to excess calories; Z87.442 Personal history of urinary calculi; Z88.6 Allergy status to analgesic agent
CPT/HCPCS: 36415; 71045; 80048; 80053; 81001; 82803; 83036; 83605; 85025; 85027; 85610; 87040; 87077; 87086; 87088; 87186; 93005; 93010; 96361; 96374; 99285; J0696; J1644; J7030